=== PATIENT | female | born 1985 | race Caucasian/White ===

== ENCOUNTER 2018-01-24 14:05 | Emergency (ER) | payer BC ==
--- OUTSIDE RECORDS SUMMARY | 2018-01-24 14:08 | XMS REPORT ---
:1985 [facility] Address [address] [place] [address] Care Team Providers Name Role Phone WILLIAMS SANDY Unavailable Unavailable NAN JACKSON Unavailable Unavailable Problems This patient has no known problems. Allergies, Adverse Reactions, Alerts This patient has no known allergies or adverse reactions. Medications This patient has no known medications. Results Test Description Test Time Test Comments Text Results Atomic Results Result Comments RAD, CHEST, 2 2017-07-28 12:08:00 Reason for FINAL REPORT PATIENT VIEWS exam:->shortness of ID: [id number] Chest breath two views Discussion: Heart, lungs, bones, soft tissues unremarkable. No effusion or pneumothorax. Signed: Nan Morales MDReport Verified Date/Time: 07/28/2017 12:08:09 Reading Location: [facility] Radiology Reading Room TINE KINASE (CK), TOTAL AND MB 2017-07-28 11:37:00 Test Item Value Reference Range Comments CREATINE KINASE TOTAL (BEAKER) (test bcio=856) 82 U/L 29-200 CREATINE KINASE-MB (BEAKER) (test wwtb=612) 1.4 ng/mL 0.0-6.6 CREATINE KINASE-MB INDEX (BEAKER) (test jxww=378) 1.7 % CK-MB Reference Range:<6.7 Normal6.7-10.0 Borderline>10.0 AbnormalTROPONIN [id number] 11:37:00 Test Item Value Reference Range Comments TROPONIN I (BEAKER) (test gpuz=894) < ng/mL 0.00-0.03 Troponin I (TnI) levels must be interpreted in the context of the presenting symptoms and the clinical findings. Elevated TnI levels indicate myocardial damage, but are not specific for ischemic heart disease. Elevated TnI levels are seen in patients with other cardiac conditions (including myocarditis and congestive heart failure), and slight TnI elevations occur in patients with other conditions, including sepsis, renal failure, acidosis, acute neurological disease, and persistent tachyarrhythmia.T4, [id number] 09:57:00 Test Item Value Reference Range Comments FREE T4 (BEAKER) (test sliz=548) 0.93 ng/dL 0.70-1.48 TSH/FREE T4 IF [id number] 08:20:00 Test Item Value Reference Range Comments THYROID STIMULATING HORMONE (BEAKER) (test 6.01 uIU/mL 0.35-4.94 gcwj=704) [id number] 08:15:00 Test Item Value Reference Range Comments FERRITIN (BEAKER) (test gkky=257) 7 ng/mL 5-275 IRON, TIBC, % SAT. (WITHOUT FERRITIN)2017-07-28 07:44:00 Test Item Value Reference Range Comments IRON (BEAKER) (test ldra=894) 27 ug/dL 40-160 TOTAL IRON BINDING CAPACITY (BEAKER) (test 394 ug/dL 250-450 jmeh=772) IRON % SATURATION (2) (BEAKER) (test oqol=8621) 7 % 20-55 CT, CHEST WITH IV CONTRAST- PE TEST [id number] 03:17:00FINAL REPORT CT, CHEST WITH IV CONTRAST- PE TEST DESIGN INDICATION: Chest pain, acute, PE suspected, high pretest prob COMPARISON: None TECHNIQUE: Contrast enhanced CT examination of the chest in the pulmonary arterial phase from the bases to the apices. Orthogonal reformatted images as well as coronal maximum intensity projection images were obtained. DOSE REDUCTION: Dose modulation, iterative reconstruction, and/or weight-based adjustment of the mA/ kV was utilized to reducethe radiation dose to as low as reasonably achievable. FINDINGS: Lungs and pleura: No consolidation.No effusion or pneumothorax.Central airways: Patent.Mediastinum: No adenopathy.Heart and pericardium: Unremarkable. Great vessels: Normal calibers.Pulmonary embolism: None. Regional skeletal structures: Intact. Included upper abdomen: No acute abnormalities. Additional findings: Subcentimeter cystic changes in the left thyroid lobe requiring no imaging follow-up. IMPRESSION: No pulmonary embolism. No acute intrathoracic abnormality. Signed: JR Rich, Mercedes Vang Verified Date/Time: 07/28/2017 03:17:27 Reading Location: [facility] C013T Transitional Reading Room CREATINE KINASE (CK), TOTAL AND [id number] 02:42:00 Test Item Value Reference Range Comments CREATINE KINASE TOTAL (BEAKER) (test qwxs=941) 98 U/L 29-200 CREATINE KINASE-MB (BEAKER) (test tfmq=624) 1.2 ng/mL 0.0-6.6 CREATINE KINASE-MB INDEX (BEAKER) (test pcwi=978) 1.2 % CK-MB Reference Range:<6.7 Normal6.7-10.0 Borderline>10.0 AbnormalFasting lipid panelFasting lipid panelTROPONIN [id number] 02:42:00 Test Item Value Reference Range Comments TROPONIN I (BEAKER) (test jsje=438) < ng/mL 0.00-0.03 Troponin I (TnI) levels must be interpreted in the context of the presenting symptoms and the clinical findings. Elevated TnI levels indicate myocardial damage, but are not specific for ischemic heart disease. Elevated TnI levels are seen in patients with other cardiac conditions (including myocarditis and congestive heart failure), and slight TnI elevations occur in patients with other conditions, including sepsis, renal failure, acidosis, acute neurological disease, and persistent tachyarrhythmia.Fasting lipid [id number] 02:35:00 Test Item Value Reference Range Comments MAGNESIUM (BEAKER) (test zdmz=335) 2.1 mg/dL 1.6-2.6 Fasting lipid panelBASIC METABOLIC [id number] 02:35:00 Test Item Value Reference Range Comments SODIUM (BEAKER) (test 136 meq/L 136-145 nlsv=707) POTASSIUM (BEAKER) (test 4.1 meq/L 3.5-5.1 tpmu=751) CHLORIDE (BEAKER) (test 105 meq/L 98-107 gtsy=605) CO2 (BEAKER) (test 22 meq/L 22-29 wxrs=086) BLOOD UREA NITROGEN 8 mg/dL 7-21 (BEAKER) (test gkdz=912) CREATININE (BEAKER) (test 0.68 mg/dL 0.57-1.25 kupj=647) GLUCOSE RANDOM (BEAKER) 100 mg/dL 70-105 (test exfa=332) CALCIUM (BEAKER) (test 8.9 mg/dL 8.4-10.2 ixce=548) EGFR (BEAKER) (test 102 mL/min/1.73 sq m ESTIMATED GFR IS NOT vldt=0740) ACCURATE CREATININE CLEARANCE IN PREDICTING GLOMERULAR FILTRATION RATE. ESTIMATED GFR IS NOT APPLICABLE FOR DIALYSIS PATIENTS. Fasting lipid panelLIPID [id number] 02:35:00 Test Item Value Reference Range Comments TRIGLYCERIDES (BEAKER) (test ldkf=183) 114 mg/dL CHOLESTEROL (BEAKER) (test ryij=324) 129 mg/dL HDL CHOLESTEROL (BEAKER) (test pycm=779) 31 mg/dL LDL CHOLESTEROL CALCULATED (BEAKER) (test 75 mg/dL ddfe=913) Triglyceride Reference Range: Low Risk <150 Borderline 150- 199 High Risk 200-499 Very High Risk >=500Cholesterol Reference Range: Low Risk <200 Borderline 200-239 High Risk > 240HDL Cholesterol Reference Range: Low Risk >=60 High Risk <40LDL Cholesterol Reference Range: Optimal <100 Near Optimal 100-129 Borderline 130-159 High 160-189 Very High >=190 Fasting lipid panelHEPATIC FUNCTION [id number] 02:35:00 Test Item Value Reference Range Comments TOTAL PROTEIN (BEAKER) (test qzsx=335) 7.4 gm/dL 6.0-8.3 ALBUMIN (BEAKER) (test nasd=5917) 3.7 g/dL 3.5-5.0 BILIRUBIN TOTAL (BEAKER) (test dhex=261) 0.4 mg/dL 0.2-1.2 BILIRUBIN DIRECT (BEAKER) (test mpll=875) 0.2 mg/dL 0.1-0.5 ALKALINE PHOSPHATASE (BEAKER) (test ptee=994) 96 U/L 40-150 AST (SGOT) (BEAKER) (test jtxh=278) 14 U/L 5-34 ALT (SGPT) (BEAKER) (test xbvz=871) 19 U/L 6-55 Fasting lipid panelCBC W/PLT COUNT & AUTO [id number] 02:27:00 Test Item Value Reference Range Comments WHITE BLOOD CELL COUNT (BEAKER) (test bgpp=425) 6.8 K/ L 3.5-10.5 RED BLOOD CELL COUNT (BEAKER) (test nucs=338) 4.13 M/ L 3.93-5.22 HEMOGLOBIN (BEAKER) (test yptm=453) 8.6 GM/DL 11.2-15.7 HEMATOCRIT (BEAKER) (test vjzy=005) 29.3 % 34.1-44.9 MEAN CORPUSCULAR VOLUME (BEAKER) (test zzny=344) 70.9 fL 79.4-94.8 MEAN CORPUSCULAR HEMOGLOBIN (BEAKER) (test 20.8 pg 25.6-32.2 phry=622) MEAN CORPUSCULAR HEMOGLOBIN CONC (BEAKER) (test 29.4 GM/DL 32.2-35.5 ckmb=627) RED CELL DISTRIBUTION WIDTH (BEAKER) (test 16.9 % 11.7-14.4 cudz=165) PLATELET COUNT (BEAKER) (test aiyo=459) 294 K/CU MM 150-450 MEAN PLATELET VOLUME (BEAKER) (test bgwt=761) 9.6 fL 9.4-12.3 NUCLEATED RED BLOOD CELLS (BEAKER) (test 0 /100 WBC 0-0 anqw=808) NEUTROPHILS RELATIVE PERCENT (BEAKER) (test 65 % dgpa=158) LYMPHOCYTES RELATIVE PERCENT (BEAKER) (test 25 % jpff=089) MONOCYTES RELATIVE PERCENT (BEAKER) (test 8 % srih=925) EOSINOPHILS RELATIVE PERCENT (BEAKER) (test 1 % glru=180) BASOPHILS RELATIVE PERCENT (BEAKER) (test 1 % vlhe=569) NEUTROPHILS ABSOLUTE COUNT (BEAKER) (test 4.45 K/ L 1.56-6.13 psmu=150) LYMPHOCYTES ABSOLUTE COUNT (BEAKER) (test 1.73 K/ L 1.18-3.74 tztv=646) MONOCYTES ABSOLUTE COUNT (BEAKER) (test 0.51 K/ L 0.24-0.36 jvxm=484) EOSINOPHILS ABSOLUTE COUNT (BEAKER) (test 0.06 K/ L 0.04-0.36 ifby=899) BASOPHILS ABSOLUTE COUNT (BEAKER) (test 0.06 K/ L 0.01-0.08 ebbn=381) IMMATURE GRANULOCYTES-RELATIVE PERCENT (BEAKER) 0 % 0-1 (test kjvx=1136) RETICULOCYTE [id number] 02:17:00 Test Item Value Reference Range Comments RETICULOCYTE COUNT PCT (BEAKER) (test xqbz=699) 1.7 % 0.5-1.7 CBC W/PLT COUNT & AUTO [id number] 10:34:00 Test Item Value Reference Range Comments WHITE BLOOD CELL COUNT (BEAKER) (test wnhr=675) 5.3 K/ L 3.5-10.5 RED BLOOD CELL COUNT (BEAKER) (test thqv=168) 4.19 M/ L 3.93-5.22 HEMOGLOBIN (BEAKER) (test rbyk=031) 8.8 GM/DL 11.2-15.7 HEMATOCRIT (BEAKER) (test amco=685) 29.9 % 34.1-44.9 MEAN CORPUSCULAR VOLUME (BEAKER) (test ytsl=733) 71.4 fL 79.4-94.8 MEAN CORPUSCULAR HEMOGLOBIN (BEAKER) (test 21.0 pg 25.6-32.2 btke=120) MEAN CORPUSCULAR HEMOGLOBIN CONC (BEAKER) (test 29.4 GM/DL 32.2-35.5 leti=831) RED CELL DISTRIBUTION WIDTH (BEAKER) (test 16.9 % 11.7-14.4 bvgi=091) PLATELET COUNT (BEAKER) (test oagg=018) 299 K/CU MM 150-450 MEAN PLATELET VOLUME (BEAKER) (test ggkb=814) 8.9 fL 9.4-12.3 NUCLEATED RED BLOOD CELLS (BEAKER) (test 0 /100 WBC 0-0 ykpm=458) NEUTROPHILS RELATIVE PERCENT (BEAKER) (test 68 % rujb=879) LYMPHOCYTES RELATIVE PERCENT (BEAKER) (test 22 % eysg=400) MONOCYTES RELATIVE PERCENT (BEAKER) (test 8 % annv=156) EOSINOPHILS RELATIVE PERCENT (BEAKER) (test 2 % soyn=090) BASOPHILS RELATIVE PERCENT (BEAKER) (test 1 % gmes=481) NEUTROPHILS ABSOLUTE COUNT (BEAKER) (test 3.59 K/ L 1.56-6.13 zbnp=445) LYMPHOCYTES ABSOLUTE COUNT (BEAKER) (test 1.14 K/ L 1.18-3.74 ginu=005) MONOCYTES ABSOLUTE COUNT (BEAKER) (test 0.40 K/ L 0.24-0.36 xqxm=642) EOSINOPHILS ABSOLUTE COUNT (BEAKER) (test 0.10 K/ L 0.04-0.36 txtc=707) BASOPHILS ABSOLUTE COUNT (BEAKER) (test 0.06 K/ L 0.01-0.08 kvvk=445) IMMATURE GRANULOCYTES-RELATIVE PERCENT (BEAKER) 0 % 0-1 (test yjgn=8583) BASIC METABOLIC [id number] 08:52:00 Test Item Value Reference Range Comments SODIUM (BEAKER) (test 135 meq/L 136-145 ahqk=524) POTASSIUM (BEAKER) (test 4.1 meq/L 3.5-5.1 nlew=112) CHLORIDE (BEAKER) (test 104 meq/L 98-107 veyu=843) CO2 (BEAKER) (test 24 meq/L 22-29 adey=231) BLOOD UREA NITROGEN 9 mg/dL 7-21 (BEAKER) (test nflk=770) CREATININE (BEAKER) (test 0.71 mg/dL 0.57-1.25 tgqa=854) GLUCOSE RANDOM (BEAKER) 103 mg/dL 70-105 (test iieh=952) CALCIUM (BEAKER) (test 8.7 mg/dL 8.4-10.2 hqhp=280) EGFR (BEAKER) (test 97 mL/min/1.73 sq m ESTIMATED GFR IS NOT podb=2328) ACCURATE CREATININE CLEARANCE IN PREDICTING GLOMERULAR FILTRATION RATE. ESTIMATED GFR IS NOT APPLICABLE FOR DIALYSIS PATIENTS.
--- OUTSIDE RECORDS SUMMARY | 2018-01-24 14:08 | XMS REPORT | Clinical Summary ---
:1985 Author Organization [facility] Address [address] [place] [address] Phone Care Team Providers Name Role Phone Unavailable Primary Care Provider Unavailable Allergies No Known Allergies Current Medications Prescription Sig. Disp. Refills Start Date End Date Status ALPRAZOLAM (XANAX Take by mouth 2 Active ORAL) (two) times daily as needed. lithium 300 mg Take 300 mg by Active tablet mouth daily. buPROPion Take 150 mg by Active (WELLBUTRIN XL) 150 mouth daily. MG 24 hr tablet Missing or Hormone Active Non-Formulary medication to Medication stop her menstrual cycle, cannot recall name, once daily PO . SYNTHROID 50 mcg 07/08/2017 Active tablet ferrous sulfate 325 Take 1 tablet 180 tablet 0 07/28/2017 07/28/2018 Active (65 FE) MG tablet (325 mg total) by mouth 2 (two) times daily with breakfast and dinner. acetaminophen-codei Take 1 tablet by 30 tablet 0 07/28/2017 08/07/2017 ne (TYLENOL #3) mouth every 4 300-30 mg per (four) hours as tablet needed for up to 10 days. Max Daily Amount: 6 tablets ibuprofen Take 1 tablet 40 tablet 0 07/28/2017 08/11/2017 (ADVIL,MOTRIN) 800 (800 mg total) by MG tablet mouth 3 (three) times daily for 14 days. Active Problems Problem Noted Date Unstable angina pectoris (HCC) 07/28/2017 Chest pain 07/27/2017 SVT (supraventricular tachycardia) ([facility]) 07/21/2017 Encounters Date Type Specialty Care Team Description 07/27/2017 - Hospital Encounter General Internal Chau Le Unstable angina 07/28/2017 Medicine MD Alex pectoris (HCC) 07/21/2017 Hospital Encounter Nan Dunne MD 07/21/2017 Anesthesia Event Hanh Garcia MD 07/21/2017 Procedure Pass 07/21/2017 Surgery Nan Dunne EPS & ABLATION MD Fletcher 07/20/2017 Orders Only Cardiology Nan Dunne MD after 01/23/2017 Social History Tobacco Use Types Packs/Day Years Used Date Former Smoker Smokeless Tobacco: Never Used Comments: Quit 12 years ago Alcohol Use Drinks/Week oz/Week Comments Yes Once every 3 mos Sex Assigned at Date Recorded Not on file Last Filed Vital Signs Vital Sign Reading Time Taken Blood Pressure 108/57 07/28/2017 11:22 AM CDT Pulse 90 07/28/2017 11:22 AM CDT Temperature 35.6 C (96 F) 07/28/2017 11:22 AM CDT Respiratory Rate 17 07/28/2017 11:22 AM CDT Oxygen Saturation 96% 07/28/2017 11:22 AM CDT Inhaled Oxygen Concentration - - Weight 114.8 kg (253 lb) 07/27/2017 7:28 PM CDT Height 167.6 cm (5' 6") 07/27/2017 7:28 PM CDT Body Mass Index 40.84 07/27/2017 7:28 PM CDT Plan of Treatment Not on file Procedures Procedure Name Priority Date/Time Associated Diagnosis Comments EPS & ABLATION 07/21/2017 1:32 PM CDT I47.1-SVT Case Notes POP6 EPS/ABLATION WITH MUSA Special Needs OVIDIO [phone]/ZAHRA after 01/23/2017 Results RHYTHM STRIP - SCAN (07/29/2017 2:10 PM)XR chest 2 views (07/28/2017 11:46 AM) Specimen Performing Laboratory GE RIS Narrative FINAL REPORT Chest two views Discussion: Heart, lungs, bones, soft tissues unremarkable. No effusion or pneumothorax. Signed: Nan Morales MD Report Verified Date/Time:07/28/2017 12:08:09 Reading Location: [facility] Radiology Reading Room Procedure Note Interface, External Ris In - 07/28/2017 12:10 PM CDT FINAL REPORT Chest two views Discussion: Heart, lungs, bones, soft tissues unremarkable. No effusion or pneumothorax. Signed: Nan Morales MD Report Verified Date/Time: 07/28/2017 12:08:09 Reading Location: [facility] Radiology Reading Room Troponin I (07/28/2017 10:55 AM)Only the most recent of2 resultswithin the time period is included. Component Value Ref Range Troponin I <0.01 0.00 - 0.03 ng/mL Specimen Performing Laboratory Blood - Arm, [place] [address] Narrative Troponin I (TnI) levels must be interpreted [...] failure, acidosis, acute neurological disease, and persistent tachyarrhythmia. Creatine Kinase (CK), Total and MB (07/28/2017 10:55 AM)Only the most recent of2 resultswithin the time period is included. Component Value Ref Range Total CK 82 29 - 200 U/L CK-MB 1.4 0.0 - 6.6 ng/mL MB Relative Index 1.7 % Specimen Performing Laboratory Blood - Arm, [place] [address] Narrative CK-MB Reference Range: <6.7Normal 6.7-10.0Borderline >10.0 Abnormal ECG 12 lead (07/28/2017 7:55 AM) Specimen Performing Laboratory GE MUSE Narrative Ventricular Rate 89 BPM Atrial Rate 89 BPM P-R Interval 152 ms QRS Duration 76 ms Q-T Interval 388 ms QTC Calculation(Bazett) 472 ms P Sassafras 56 degrees R Sassafras 55 degrees T Sassafras 46 degrees Normal sinus rhythm Prolonged QT No previous ECGs available Confirmed by Nishant SCHOFIELD, LUISANA ([id number]) on 07/28/2017 10:08:57 PM Procedure Note Interface, External Ris In - 07/28/2017 10:09 PM CDT Ventricular Rate 89 BPM Atrial Rate 89 BPM P-R Interval 152 ms QRS Duration 76 ms Q-T Interval 388 ms QTC Calculation(Bazett) 472 ms P [place]assafr[place] 56 degrees R [place]assafr[place] 55 degrees T [place] 46 degrees Normal sinus rhythm Prolonged QT No previous ECGs available Confirmed by Nishant SCHOFIELD BASANT ([id number]) on 07/28/2017 10:08:57 PM ECHOCARDIOGRAM REPORT - SCAN (07/28/2017 7:20 AM)PERIPHERAL VASCULAR REPORT - SCAN (07/28/2017 7:20 AM)CT chest for pulmonary embolus (07/28/2017 3:11 AM) Specimen Performing Laboratory [facility] Narrative FINAL REPORT CT, CHEST WITH IV CONTRAST- PE TEST DESIGN INDICATION: Chest pain, acute, PE suspected, high pretest prob COMPARISON: None TECHNIQUE: Contrast enhanced CT examination of the chest in the pulmonary arterial phase from the bases to the apices. Orthogonal reformatted images as well as coronal maximum intensity projection images were obtained. DOSE REDUCTION: Dose modulation, iterative reconstruction, and/or weight-based adjustment of the mA/kV was utilized to reduce the radiation dose to as low as reasonably achievable. FINDINGS: Lungs and pleura: No consolidation. No effusion or pneumothorax. Central airways: Patent. Mediastinum: No adenopathy. Heart and pericardium: Unremarkable. Great vessels: Normal calibers. Pulmonary embolism: None. Regional skeletal structures: Intact. Included upper abdomen: No acute abnormalities. Additional findings: Subcentimeter cystic changes in the left thyroid lobe requiring no imaging follow-up. IMPRESSION: No pulmonary embolism. No acute intrathoracic abnormality. Signed: JR Villanueva Robert MD Report Verified Date/Time:07/28/2017 03:17:27 Reading Location: [address] Transitional Reading Room Procedure Note Interface, External Ris In - 07/28/2017 3:19 AM CDT FINAL REPORT CT, CHEST WITH IV CONTRAST- PE TEST DESIGN INDICATION: Chest pain, acute, PE suspected, high pretest prob COMPARISON: None TECHNIQUE: Contrast enhanced CT examination of the chest in the pulmonary arterial phase from the bases to the apices. Orthogonal reformatted images as well as coronal maximum intensity projection images were obtained. DOSE REDUCTION: Dose modulation, iterative reconstruction, and/or weight-based adjustment of the mA/kV was utilized to reduce the radiation dose to as low as reasonably achievable. FINDINGS: Lungs and pleura: No consolidation. No effusion or pneumothorax. Central airways: Patent. Mediastinum: No adenopathy. Heart and pericardium: Unremarkable. Great vessels: Normal calibers. Pulmonary embolism: None. Regional skeletal structures: Intact. Included upper abdomen: No acute abnormalities. Additional findings: Subcentimeter cystic changes in the left thyroid lobe requiring no imaging follow-up. IMPRESSION: No pulmonary embolism. No acute intrathoracic abnormality. Signed: JR Rich, Mercedes DEL ROSARIO Report Verified Date/Time: 07/28/2017 03:17:27 Reading Location: [address] Transitional Reading Room /Free T4 If Indicated (07/28/2017 1:44 AM) Component Value Ref Range TSH 6.01 (H) 0.35 - 4.94 uIU/mL Specimen Performing Laboratory Blood - [facility], [address] [address] Iron, TIBC, % sat. (without ferritin) (07/28/2017 1:44 AM) Component Value Ref Range Iron 27 (L) 40 - 160 ug/dL TIBC 394 250 - 450 ug/dL Iron % Saturation 7 (L) 20 - 55 % Specimen Performing Laboratory Blood - [facility], [address] [address] CBC with platelet count + automated diff (07/28/2017 1:44 AM)Only the most recent of2 resultswithin the time period is included. Component Value Ref Range WBC 6.8 3.5 - 10.5 K/L RBC 4.13 3.93 - 5.22 M/L Hemoglobin 8.6 (L) 11.2 - 15.7 GM/DL Hematocrit 29.3 (L) 34.1 - 44.9 % MCV 70.9 (L) 79.4 - 94.8 fL MCH 20.8 (L) 25.6 - 32.2 pg MCHC 29.4 (L) 32.2 - 35.5 GM/DL RDW 16.9 (H) 11.7 - 14.4 % Platelets 294 150 - 450 K/CU MM MPV 9.6 9.4 - 12.3 fL nRBC 0 0 - 0 /100 WBC % Neutros 65 % % Lymphs 25 % % Monos 8 % % Eos 1 % % Baso 1 % # Neutros 4.45 1.56 - 6.13 K/L # Lymphs 1.73 1.18 - 3.74 K/L # Monos 0.51 (H) 0.24 - 0.36 K/L # Eos 0.06 0.04 - 0.36 K/L # Baso 0.06 0.01 - 0.08 K/L Immature Granulocytes-Relative 0 0 - 1 % Specimen Performing Laboratory [facility], [address] [address] Reticulocyte count (07/28/2017 1:44 AM) Component Value Ref Range % Retic 1.7 0.5 - 1.7 % Specimen Performing Laboratory [facility] - [facility], [address] [address] CBC with platelet count + automated diff (07/28/2017 1:44 AM)Only the most recent of2 resultswithin the time period is included. Specimen Performing Laboratory Blood Narrative The following orders were created for panel order CBC with platelet count + automated diff. Procedure Abnormality Status --------- ------ CBC with platelet count ...[[id number]]AbnormalFinal result Please view results for these tests on the individual orders. T4, free (07/28/2017 1:44 AM) Component Value Ref Range Free T4 0.93 0.70 - 1.48 ng/dL Specimen Performing Laboratory [facility], [address] [address] Magnesium (07/28/2017 1:44 AM) Component Value Ref Range Magnesium 2.1 1.6 - 2.6 mg/dL Specimen Performing Laboratory [facility] - [facility], [address] [address] Narrative Fasting lipid panel Ferritin (07/28/2017 1:44 AM) Component Value Ref Range Ferritin 7 5 - 275 ng/mL Specimen Performing Laboratory [facility] - [facility], [address] [address] Hepatic function panel (07/28/2017 1:44 AM) Component Value Ref Range Protein, Total 7.4 6.0 - 8.3 gm/dL Albumin 3.7 3.5 - 5.0 g/dL Total Bilirubin 0.4 0.2 - 1.2 mg/dL Bilirubin, Direct 0.2 0.1 - 0.5 mg/dL Alkaline Phosphatase 96 40 - 150 U/L AST 14 5 - 34 U/L ALT 19 6 - 55 U/L Specimen Performing Laboratory [facility] - [facility], [address] [address] Narrative Fasting lipid panel Lipid panel (07/28/2017 1:44 AM) Component Value Ref Range Triglycerides 114 mg/dL Cholesterol 129 mg/dL HDL 31 mg/dL LDL Calculated 75 mg/dL Specimen Performing Laboratory [facility], [address] [address] Narrative Triglyceride Reference Range: Low Risk <150 [id number] High Risk 200-499 Very High Risk>=500 Cholesterol Reference Range: Low Risk <200 [id number] High Risk>240 HDL Cholesterol Reference Range: Low Risk >=60 High Risk <40 LDL Cholesterol Reference Range: Optimal<100 Near [id number] [id number] Vqmc882-537 Very High >=190 Fasting lipid panel Basic metabolic panel (07/28/2017 1:44 AM)Only the most recent of2 resultswithin the time period is included. Component Value Ref Range Sodium 136 136 - 145 meq/L Potassium 4.1 3.5 - 5.1 meq/L Chloride 105 98 - 107 meq/L CO2 22 22 - 29 meq/L BUN 8 7 - 21 mg/dL Creatinine 0.68 0.57 - 1.25 mg/dL Glucose 100 70 - 105 mg/dL Calcium 8.9 8.4 - 10.2 mg/dL EGFR 102Comment: ESTIMATED GFR IS NOT ACCURATE mL/min/1.73 sq m CREATININE CLEARANCE IN PREDICTING GLOMERULAR FILTRATION RATE. ESTIMATED GFR IS NOT APPLICABLE FOR DIALYSIS PATIENTS. Specimen Performing Laboratory Blood - [facility], Right [facility] [address] [address] Narrative Fasting lipid panel Venous doppler legs bilateral (07/28/2017 12:55 AM) Component Value Ref Range Ejection Fraction Specimen Performing Laboratory [facility] ECHO HEARTLAB MKCKGISELE CPACS Impressions Right Impression 1. There is no deep venous obstruction in the common femoral, profunda femoral, femoral, popliteal, posterior tibial or peroneal veins. 2. There is no superficial venous obstruction in the great saphenous vein. Left Impression 1. There is no deep venous obstruction in the common femoral, profunda femoral, femoral, popliteal, posterior tibial or peroneal veins. 2. There is no superficial venous obstruction in the great saphenous vein. Conclusions Summary Venous duplex imaging and compression of the bilateral lower extremities were performed. The veins were adequately visualized. The bilateral venous systems were patent and compressible with no evidence of thrombus. Signature Velocities are measured in cm/s ; Diameters are measured in cm Narrative PV LAB - Lower Extremities DVT Study Demographics Patient Name KEIKO RODRIGUEZDate of Study 07/28/2017 HELEN [id number] 32 Visit Number [id number] Female Accession Number [id number] of 1985 Sarah Trujillo MD Room Number 701 Physician SonographerAvery DuranterpreChristie. Physician CARIN Berrios, RPVI Procedure Type of Study: Veins: Lower Extremities DVT Study, VENOUS DOPPLER LEG, BILATERAL. Indications for Study:Chest pain . Patient Status:Routine. Study Location:Portable. Technical Quality:Adequate visualization. Risk Factors History of Disease + +----+ + !Diagnosis !Date!Comments ! + +----+ + !History/Risk!!Recent Ablation, Obesity, Former Smoker, Recent ! !Factors:!!Trauma (Fall) ! + +----+ + Procedure Note Interface, External Ris In - 07/28/2017 4:47 AM CDT PV LAB - Lower Extremities DVT Study Demographics Patient Name KEIKO RODRIGUEZ Date of Study 07/28/2017 HELEN Age 32 Visit Number [id number] Gender Female Accession Number [id number] Date of 1985 Referring Uzair Trujillo MD Room Number 701 Physician Mobile Equipment Mechanic Avery Welsh Interpreting [place] Castillo, Physician , [facility] Procedure Type of Study: Veins: Lower Extremities DVT Study, VENOUS DOPPLER LEG, BILATERAL. Indications for Study:Chest pain . Patient Status:Routine. Study Location:Portable. Technical Quality:Adequate visualization. Risk Factors History of Disease + +----+ + !Diagnosis !Date!Comments ! + +----+ + !History/Risk ! !Recent Ablation, Obesity, Former Smoker, Recent ! !Factors: ! !Trauma (Fall) ! + +----+ + Impressions Right Impression 1. There is no deep venous obstruction in the common femoral, profunda femoral, femoral, popliteal, posterior tibial or peroneal veins. 2. There is no superficial venous obstruction in the great saphenous vein. Left Impression 1. There is no deep venous obstruction in the common femoral, profunda femoral, femoral, popliteal, posterior tibial or peroneal veins. 2. There is no superficial venous obstruction in the great saphenous vein. Conclusions Summary Venous duplex imaging and compression of the bilateral lower extremities were performed. The veins were adequately visualized. The bilateral venous systems were patent and compressible with no evidence of thrombus. Signature Velocities are measured in cm/s ; Diameters are measured in cm CARDIAC CATH REPORT - SCAN (07/26/2017 3:12 PM)Only the most recent of2 resultswithin the time period is included.2D Echo W/Doppler(CW/PW/Color) (2017 12:10 PM) Component Value Ref Range Ejection Fraction Specimen Performing Laboratory [facility] ECHO [facility]ART[facility] Narrative Transthoracic Echocardiography Report (TTE) Demographics Patient Name KEIKO RODRIGUEZ Date of Study 07/21/2017 HELEN [id number] GenderFemale Visit Number [id number] RaceUnknown [id number] Number SCLP Number Date of Birth1985 Referring Physician Uzair Trujillo MD Age32 year(s) Mobile Equipment Mechanic Saray Flores [facility] Pat Griffin [facility] Interpreting Nereida Johnson MD Physician Loren Echeverria MD Procedure Type of Study TTE procedure:2DECHO W DOPPLER(CW/PW/COLOR) ([facility]) Indications:Sustained or non sustained Afib, SVT or VT. Clinical History ANEMIA;PALPS;SVT;ARRHYTHMIA;THYROID DIS HGB 8.8 HCT 29.9 % Height: 66 inches Weight: 114.31 kg (252.01 lbs) BSA: 2.21 m^2 BMI: 40.67 kg/m^2 HR: 98 bpm BP: 106/71 mmHg Summary 1. All of the LV segments contract normally . Estimated LVEF by qualitative assessment is normal (>60%) . 2. Normal diastolic function. Unable to estimate peak systolic PA pressure 3. The right ventricular chamber size and systolic function are within normal limits. Previous Study No prior exam available for comparison. Signature Findings Technical Quality: Technically adequate exam. Rhythm/BPRegular sinus rhythm during the exam. Left Ventricle The left ventricle is chamber size (by vol index) is normal (female - LVED vol - 29-61ml/m2). No evidence of LV hypertrophy. All of the LV segments contract normally . Global LV systolic function normal . Estimated LVEF by qualitative assessment is normal (>60%) . Normal diastolic function. Left AtriumLA size is normal (16-34 ml/m2) . Right VentricleThe right ventricular chamber size and systolic function are within normal limits. Right Atrium RA cavity size is normal . Aortic Valve Mild AoV cusp thickening. AoV cusp mobility is normal . Mitral Valve Normal MV structure and function. Tricuspid ValveTV structure is normal. A trace of tricuspid regurgitation. Unable to estimate peak systolic PA pressure; inadequate TR velocity signal. Pulmonic Valve PV is not well visualized; function appears normal by Doppler visualized. AortaAortic root size (SInus of Valsalva diameter) is normal . PericardiumNo pericardial effusion is visualized. IVC/SVC/PA/PV/PleuralThe inferior vena cava is not well visualized. The estimated RA pressure by IVC dynamics indeterminate . Chambers/Structures Left Atrium LA Volume: 52.97 ml LA Area: 18.21 cm^ 2 LA Vol. Index: 24 ml/m^2 Left Ventricle LVIDd: 4.52 cm LVIDs: 3.45 cm LV Septum Diastolic: 0.73 cm LV PW Diastolic: 0.95 cmLV FS: 23.7 % LVEDV Weston's:129.4 ml LVEDVI: 59 ml/m^2 LVOT Diameter: 2.48 cm Aorta Ao Root S of Sarah.: 2.93 cm Doppler/Quantitative Measurements Mitral Valve MV Peak E-Wave: 0.68 m/s MV Peak A-Wave: 0.74 m/s E/A Ratio: 0.92 Peak Gradient: 1.85 mmHg Deceleration Time: 182.4 msec MV Gio. Peak: Aortic Valve Peak Velocity: 1.17 m/sMean Velocity: 0.87 m/s Peak Gradient: 5.49 mmHg Mean Gradient: 3.25 mmHg AV Area (continuity): 3.27 cm^2 AV VTI: 22 cm AV DVI: 0.68 LVOT Peak Velocity: 0.83 m/s Peak Gradient: 2.76 mmHg Mean Velocity: 0.6 m/sMean Gradient: 1.61 mmHg LVOT Diameter: 2.48 cmLVOT VTI: 14.9 cm LVOT Area: 4.83 cm^2LVOT SV:71.94 ml LVOT CO: 7.05 l/min LVOT CI: 3.19 l/min/m^2 Procedure Note Interface, External Ris In - 07/27/2017 7:10 PM CDT Transthoracic Echocardiography Report (TTE) Demographics Patient Name KEIKO RODRIGUEZ Date of Study 07/21/2017 HELEN Gender Female Visit Number [id number] Race Unknown Room Number SCLP Number Date of 1985 Referring Physician Uzair Trujillo MD Age 32 year(s) Mobile Equipment Mechanic Saray Flores [facility] Plastics Nurse Sarah Griffin [facility] Interpreting Nereida Johnson MD Physician Loren Echeverria MD Procedure Type of Study TTE procedure:2DECHO W DOPPLER(CW/PW/COLOR) ([facility]) Indications:Sustained or non sustained Afib, SVT or VT. Clinical History ANEMIA;PALPS;SVT;ARRHYTHMIA;THYROID DIS HGB 8.8 HCT 29.9 % Height: 66 inches Weight: 114.31 kg (252.01 lbs) BSA: 2.21 m^2 BMI: 40.67 kg/m^2 HR: 98 bpm BP: 106/71 mmHg Summary 1. All of the LV segments contract normally . Estimated LVEF by qualitative assessment is normal (>60%) . 2. Normal diastolic function. Unable to estimate peak systolic PA pressure 3. The right ventricular chamber size and systolic function are within normal limits. Previous Study No prior exam available for comparison. Signature Findings Technical Quality: Technically adequate exam. Rhythm/BP Regular sinus rhythm during the exam. Left Ventricle The left ventricle is chamber size (by vol index) is normal (female - LVED vol - 29-61ml/m2). No evidence of LV hypertrophy. All of the LV segments contract normally . Global LV systolic function normal . Estimated LVEF by qualitative assessment is normal (>60%) . Normal diastolic function. Left Atrium LA size is normal (16-34 ml/m2) . Right Ventricle The right ventricular chamber size and systolic function are within normal limits. Right Atrium RA cavity size is normal . Aortic Valve Mild AoV cusp thickening. AoV cusp mobility is normal . Mitral Valve Normal MV structure and function. Tricuspid Valve TV structure is normal. A trace of tricuspid regurgitation. Unable to estimate peak systolic PA pressure; inadequate TR velocity signal. Pulmonic Valve PV is not well visualized; function appears normal by Doppler visualized. Aorta Aortic root size (SInus of Valsalva diameter) is normal . Pericardium No pericardial effusion is visualized. IVC/SVC/PA/PV/Pleural The inferior vena cava is not well visualized. The estimated RA pressure by IVC dynamics indeterminate . Chambers/Structures Left Atrium LA Volume: 52.97 ml LA Area: 18.21 cm^2 LA Vol. Index: 24 ml/m^2 Left Ventricle LVIDd: 4.52 cm LVIDs: 3.45 cm LV Septum Diastolic: 0.73 cm LV PW Diastolic: 0.95 cm LV FS: 23.7 % LVEDV Weston's:129.4 ml LVEDVI: 59 ml/m^2 LVOT Diameter: 2.48 cm Aorta Ao Root S of Sarah.: 2.93 cm Doppler/Quantitative Measurements Mitral Valve MV Peak E-Wave: 0.68 m/s MV Peak A-Wave: 0.74 m/s E/A Ratio: 0.92 Peak Gradient: 1.85 mmHg Deceleration Time: 182.4 msec MV Gio. Peak: Aortic Valve Peak Velocity: 1.17 m/s Mean Velocity: 0.87 m/s Peak Gradient: 5.49 mmHg Mean Gradient: 3.25 mmHg AV Area (continuity): 3.27 cm^2 AV VTI: 22 cm AV DVI: 0.68 LVOT Peak Velocity: 0.83 m/s Peak Gradient: 2.76 mmHg Mean Velocity: 0.6 m/s Mean Gradient: 1.61 mmHg LVOT Diameter: 2.48 cm LVOT VTI: 14.9 cm LVOT Area: 4.83 cm^2 LVOT SV:71.94 ml LVOT CO: 7.05 l/min LVOT CI: 3.19 l/min/m^2 POCT , urine (APPROVED LOCATIONS ONLY) (07/21/2017 8:42 AM) Component Value Ref Range Test Urine, POC Negative Control line present?, POC Yes Background clear?, POC Yes UPT Cassette Lot #, POC [id number] UPT Cassette Expiration Date, POC 11/22/2018 Specimen Performing Laboratory Urine after 01/23/2017
--- NOTE | 2018-01-24 16:01 | ER ---
Nurse's Notes [facility] Name: Lucrecia Rodriguez Age: 32 yrs Sex: Female : 1985 Arrival Date: 01/24/2018 Time: 14:08 Bed Waiting Private MD: Diagnosis: Presentation: 01/24 14:15 Presenting complaint: Patient states: intermittent CP and palpitations with dizzy aj1 spells that began at 0730 this AM. Pt has a history of SVT and has since had an ablation. Transition of care: patient was not received from another setting of care. Onset of symptoms was January 24, 2018. Risk Assessment: Do you want to hurt yourself or someone else? Patient reports no desire to harm self or others. Initial Sepsis Screen: Does the patient meet any 2 criteria? No. Patient's initial sepsis screen is negative. Does the patient have a suspected source of infection? No. Patient's initial sepsis screen is negative. Care prior to arrival: None. 14:15 Method Of Arrival: Ambulatory [facility] 14:15 Acuity: MUSA 3 aj1 Triage Assessment: 14:17 Pain: Complains of pain in chest Pain currently is 6 out of 10 on a pain scale. EENT: aj1 Oral mucosa is moist. Neuro: Level of Consciousness is awake, alert, obeys commands, Oriented to person, place, time, situation. Cardiovascular: Capillary refill < 3 seconds is brisk in bilateral fingers Rhythm is sinus rhythm. Respiratory: Airway is patent Respiratory effort is even, unlabored, Respiratory pattern is regular, symmetrical. Derm: Skin is intact, is healthy with good turgor, Skin is dry, Skin is pink, warm \T\ dry. normal. 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 - Social history:: Smoking status: Patient/guardian denies using tobacco. - Ebola Screening: : Patient denies exposure to infectious person Patient denies travel to an Ebola-affected area in the 21 days before illness onset. Vital Signs: 14:15 BP 123 / 84; Pulse 88; Resp 16; Temp 97.8(TE); Pulse Ox 100% on R/A; Weight 71.67 kg; aj1 Height 5 ft. 6 in. (167.64 cm); Pain 6/10; 14:15 Body Mass Index 25.50 (71.67 kg, 167.64 cm) aj1 ED Course: 14:08 Patient arrived in ED. rg4 14:15 Arm band placed on right wrist. aj1 14:17 Triage completed. aj1 14:27 EKG done, by implementation technician. reviewed by Harry Escobar MD. at1 15:35 Patient's name was called from ER lobby. No response. aj1 15:45 Patient's name was called from ER lobby. No response. aj1 15:59 Patient's name was called from ER lobby. No response. Unable to locate patient. Will aj1 disposition as left without being seen by a provider. Administered Medications: No medications were administered Outcome: 15:59 Eloped from waiting room. aj1 15:59 Patient left the ED. aj1 Signatures: Claudia Hernandez, RN RN aj1 Eunice Keys, residential nurse EKG Tat1 Lakshmi Reyes rg4
[2018-01-24 16:18] VITALS: BP 123/84; TEMP 97.8; O2SAT 100
--- NOTE | 2018-01-25 06:53 | EKG ---
Test Date: 2018-01-24 Test Time: 14:21:54 Career Development Coordinator: OSWALDO MEASUREMENT RESULTS: Intervals: Rate: 94 CA: 152 QRSD: 72 QT: 374 QTc: 467 [place]: P: 41 CA: 152 QRS: 68 T: 65 INTERPRETIVE STATEMENTS: Normal sinus rhythm Normal ECG No previous ECG available for comparison Electronically Signed On 01-25-18 06:50:47 CDT by Loi Dias
== END 2018-01-24 15:59 | disposition left against medical advice (07) ==
LOC: ER 14:05
DX: Z53.21 Procedure and treatment not carried out due to patient leaving prior to being seen by health care provider (principal)
CPT/HCPCS: 93005; 99284